=== PATIENT | male | born 1955 | race Caucasian/White ===

== ENCOUNTER 2017-09-02 16:08 | Emergency (ER) | payer OTHER ==
[2017-09-02] MEDS ORDERED: predniSONE 20 MG TAB ONE (18:07)
== END 2017-09-02 18:33 | disposition home or self-care (01) ==
LOC: ERS 16:08
DX: T63.461A Toxic effect of venom of wasps, accidental (unintentional), initial encounter (principal)
CPT/HCPCS: 99282; J7506